=== PATIENT | female | born 1965 | race Caucasian/White ===

== ENCOUNTER 2020-06-02 16:29 | Emergency (ER) | payer MEDICARE, MEDICAID ==
[~2020-06-02] VITALS: Ht 167.6 cm; Wt 77.0 kg
[2020-06-02 16:34] VITALS: BP 124/79
[2020-06-02 17:37] LABS: ALBUMIN 3.1 g/dL (3.4-5.0); ANION GAP 6 mmol/L (5-15); CALCIUM 9.5 mg/dL (8.5-10.1); CHLORIDE 105 mmol/L (98-107); CREATININE 1.39 mg/dL (0.55-1.02)
[2020-06-02 17:38] LABS: BASOPHILS # (AUTO) 0.03 x10^3/uL (0-0.1); BASOPHILS % (AUTO) 1 % (0-1); EOSINOPHILS # (AUTO) 0.06 x10^3/uL (0-0.4); EOSINOPHILS % (AUTO) 1 % (1-7); LYMPHOCYTES # (AUTO) 1.26 x10^3/uL (1-3.4); LYMPHOCYTES % (AUTO) 22 % (22-44); MD NO; MEAN CORPUSCULAR HEMOGLOBIN 30.4 pg (27.0-34.8); MEAN CORPUSCULAR HGB CONC 32.8 g/dL (32.4-35.8); MEAN PLATELET VOLUME 6.9 fL (7.4-10.4); MONOCYTES # (AUTO) 0.47 x10^3/uL (0.2-0.8); MONOCYTES % (AUTO) 8 % (2-9); NEUTROPHILS # (AUTO) 3.93 x10^3/uL (1.8-6.8); NEUTROPHILS % (AUTO) 68 % (42-75); PLATELET COUNT 308 x10^3/uL (130-400); RED CELL DISTRIBUTION WIDTH 12.8 % (9.6-15.2)
[2020-06-02 17:45] LABS: ALANINE AMINOTRANSFERASE 21 U/L (12-78); ALKALINE PHOSPHATASE 90 U/L (45-117); BILIRUBIN,TOTAL 0.4 mg/dL (0.2-1.0); TOTAL PROTEIN 7.9 g/dL (6.4-8.2)
--- NOTE | 2020-06-02 17:59 | NUR ---
[employer]: PT TO ROOM FROM LOBBY
--- NOTE | 2020-06-02 18:54 | NUR ---
BEDSIDE REPORT GIVEN TO RAYMODN MCNEIL RN.
[2020-06-02] MEDS ORDERED: BICILLIN-LA 2,400,000 UNITS/4 ML IM ONE (19:00)
--- NOTE | 2020-06-02 19:25 | NUR ---
Med request sent to pharmacy.
--- NOTE | 2020-06-02 20:02 | NUR ---
Pt given medication. D/C paperwork discussed. Pt verbalized understanding.
== END 2020-06-02 20:28 | disposition home or self-care (01) ==
LOC: ED 19:03
DX: A51.39 Other secondary syphilis of skin (principal); F17.200 Nicotine dependence, unspecified, uncomplicated
CPT/HCPCS: 36415; 80053; 85025; 86592; 96372; 99284; J0561; 86780